=== PATIENT | male | born 1955 | race Caucasian/White ===

== ENCOUNTER 2020-07-22 02:11 | Inpatient (IN) | payer MEDICARE, SELFPAY ==
[2020-07-22] VITALS (11 sets, daily range): BP systolic 116–149; BP diastolic 66–87; PULSE 64–100; RESP 16–18; TEMP 36.8–37.1; O2SAT 94–99; BMI 29.1
--- NOTE | 2020-07-22 | US_ITS ---
EXAMINATION: US ABDOMEN LIMITED CLINICAL INFORMATION: Pancreatitis.. COMPARISON: MRI abdomen 09/16/2019 TECHNIQUE: Real-time imaging of the right upper quadrant abdominal viscera. FINDINGS: PANCREAS: The pancreas is homogeneous in echotexture with small amount of anterior peripancreatic fluid collection. The pancreatic duct is mildly dilated measuring 3 mm. LIVER: The liver is normal in size. The liver contour is normal. Parenchymal echogenicity is increased. No focal hepatic lesion. There is no intrahepatic biliary duct dilatation seen. GALLBLADDER: Normal. The gallbladder is physiologically distended without evidence of stones, sludge, polyps, wall thickening or pericholecystic fluid. COMMON BILE DUCT: Normal in caliber measuring 0.4 cm in diameter. RIGHT KIDNEY: Normal. No hydronephrosis. No renal calculi or focal parenchymal lesions. The kidney measures 11.0 cm in maximum dimension. FREE FLUID: None. US/US abdomen limited IMPRESSION: Hepatic steatosis without any focal lesion. Anterior peripancreatic fluid collection but the pancreas otherwise is unremarkable. The peripancreatic fluid collection is likely from previous pancreatitis. Similar fluid was noted on the MRI abdomen exam 09/16/2019. Right kidney, gallbladder and CBD is unremarkable.
--- NOTE | 2020-07-22 02:36 | ED_ITS ---
HPI - Abdominal Pain General Chief Complaint: Abdominal Pain Stated Complaint: Abd pain Time Seen by Provider: 07/22/20 02:36 Source: patient Mode of arrival: ambulatory Limitations: no limitations History of Present Illness HPI narrative: 65 yo male 2 years ago had idiophatic pancreatitis - here with similar presentation, 4 hour of abdominal pain and nausesa MD elicited complaint: abdominal pain Pertinent past history: other (pancreatitis) Onset (ago): hour(s) (4) Pain Consistency: constant Location: epigastric Severity: similar to previous episodes Quality: stabbing Radiation: none Migration to: no migration Exacerbating factors: movement Relieving factors: nothing Context: history of similar episodes Associated symptoms: nausea Related Data Home Medications Medication Instructions Recorded Confirmed No Known Home Meds 07/22/20 07/22/20 Allergies Allergy/AdvReac Type Severity Reaction Status Date / Time No Known Allergies Allergy Verified 07/22/20 02:48 [No Known Allergies*] Review of Systems Review of Systems Constitutional : No Weight loss, No Fever, No Chills ENT/Mouth : No sore throat, No Rhinorrhea Eyes: No Swelling, No Redness Cardiovascular : No Chest Pain, No SOB, NoEdema Respiratory : No Cough, No Sputum, No Wheezing Gastrointestinal : Positive Nausea, Positive Vomiting, no Diarrhea, positive abdominal Pain, No Hematochezia, No Melena Genitourinary : No Dysuria, No Urinary Frequency, No Hematuria, No Urgency Musculoskeletal : No joint pain, No Myalgias, No Joint Swelling Skin : No Skin Lesions, No rash Neuro : No Weakness, No Numbness, No Dizziness, No Headache Psych : No Anxiety/Panic, No Depression Heme/Lymph: No Bruising, No Lymphadenopathy Endocrine : No Polyuria, No Polydipsia All other systems reviewed and are negative. Physical Exam Vital Signs: Vital Signs: Last Vital Signs Temp 98.3 F 07/22/20 04:00 Pulse 85 07/22/20 04:47 Resp 16 07/22/20 04:00 BP 130/70 07/22/20 04:47 Pulse Ox 99 07/22/20 04:00 Body Mass Index 29.1 Appearance: Alert. Oriented X3. No acute distress. Eyes: Pupils equal, round and reactive to light. ENT: Pharynx normal. Neck: Normal inspection. Neck supple. CVS: Normal heart rate and rhythm. Pulses normal. Respiratory: No respiratory distress. Breath sounds normal. Abdomen: Soft and moderate epigastric ttp no rebound or guarding Skin: Skin warm and dry. Normal skin color. Normal skin turgor. Extremities: No lower extremity edema. No calf ttp Neuro: Oriented X 3. No motor deficit. No sensory deficit. Course Course Course Narrative: chronic elevation in WBC count leukocytosis today due to chronic issue and not infection or severe sepsis plan to admit at this time, VS stable MDM - Abdominal Pain MDM Narrative Medical decision making narrative: 65 yo male here with abdominal pain and nausea - feels similar to his pancreatitis - workup negative for cause at that time, will need labs, IVF, CT scan, IV dilaudid for pain, dispo per results and findings. Lab Data Result diagrams: 07/22/20 03:07 07/22/20 03:06 Labs: Lab Results 07/22/20 07/22/20 07/22/20 Range/Units 03:06 03:06 03:06 WBC (4.8-10.8) X10*3/uL RBC (4.60-5.80) X10*6/uL Hgb (14.0-18.0) g/dl Hct (42-52) % MCV (80-98) fL MCH (27.0-33.0) pg MCHC (31.0-36.0) g/dl RDW (11.0-16.0) % Plt Count (160-400) X10*3/uL MPV (9.4-12.4) fL Immature Gran % (Auto) (0.0-0.4) % Neut % (Auto) (45-73) % Lymph % (Auto) (20-40) % [place] % (Auto) (2-11) % Eos % (Auto) (0-4) % Baso % (Auto) (0-2) % Lymph # (Auto) (1.2-4.9) X10*3/uL [place] # (Auto) (0.1-1.2) X10*3/uL Eos # (Auto) (0.0-0.4) X10*3/uL Baso # (Auto) (0.0-0.2) X10*3/uL Abs Immat Gran (auto) (0.00-0.03) X10*3/uL Absolute Neuts (auto) (2.0-8.3) X10*3/uL Absolute Nucleated RBC (0.0-0.012) X10*3/uL Nucleated RBC % (auto) (0.0-0.2) /100WBC PT 11.9 (10.8-13.0) SEC INR 1.0 (0.9-1.1) APTT 30.0 (24.1-38.0) SEC Sodium 139 (135-145) mmol/L Potassium 4.9 (3.3-5.1) mmol/l Chloride 100 (96-108) mmol/L Carbon Dioxide 31 H (22-29) mmol/L Anion Gap 13 (12-20) BUN 19 H (9-16) mg/dL Creatinine 1.04 (0.5-1.4) mg/dL Estim Creat Clear Calc 68.7 Estimated GFR > 60 Random Glucose 177 H (60-115) mg/dL Calcium 9.3 (8.4-10.2) mg/dL Magnesium 2.1 (1.6-2.6) mg/dL Total Bilirubin 0.3 (0.0-1.0) mg/dL Direct Bilirubin < 0.2 (0.0-0.5) mg/dL AST 24 (5-37) U/L ALT 32 (0-40) U/L Alkaline Phosphatase 78 (39-117) U/L Lactate Dehydrogenase 177 (118-273) U/L Troponin I High Sens 4.5 (<3.5-35.0) ng/L Total Protein 7.2 (6.5-8.0) g/dL Albumin 4.3 (3.5-5.0) g/dL Lipase (8-78) U/L COVID-19 (ALPHONSE) (Negative) COVID-19 Clin Com 07/22/20 07/22/20 07/22/20 Range/Units 03:06 03:07 03:07 WBC 19.5 H (4.8-10.8) X10*3/uL RBC 5.38 (4.60-5.80) X10*6/uL Hgb 15.5 (14.0-18.0) g/dl Hct 46.7 (42-52) % MCV 86.8 (80-98) fL MCH 28.8 (27.0-33.0) pg MCHC 33.2 (31.0-36.0) g/dl RDW 13.2 (11.0-16.0) % Plt Count 259 (160-400) X10*3/uL MPV 10.1 (9.4-12.4) fL Immature Gran % (Auto) 0.3 (0.0-0.4) % Neut % (Auto) 88.4 H (45-73) % Lymph % (Auto) 7.8 L (20-40) % [place] % (Auto) 2.9 (2-11) % Eos % (Auto) 0.3 (0-4) % Baso % (Auto) 0.3 (0-2) % Lymph # (Auto) 1.5 (1.2-4.9) X10*3/uL [place] # (Auto) 0.6 (0.1-1.2) X10*3/uL Eos # (Auto) 0.1 (0.0-0.4) X10*3/uL Baso # (Auto) 0.1 (0.0-0.2) X10*3/uL Abs Immat Gran (auto) 0.06 H (0.00-0.03) X10*3/uL Absolute Neuts (auto) 17.2 H (2.0-8.3) X10*3/uL Absolute Nucleated RBC 0.000 (0.0-0.012) X10*3/uL Nucleated RBC % (auto) 0.0 (0.0-0.2) /100WBC PT (10.8-13.0) SEC INR (0.9-1.1) APTT (24.1-38.0) SEC Sodium (135-145) mmol/L Potassium (3.3-5.1) mmol/l Chloride (96-108) mmol/L Carbon Dioxide (22-29) mmol/L Anion Gap (12-20) BUN (9-16) mg/dL Creatinine (0.5-1.4) mg/dL Estim Creat Clear Calc Estimated GFR Random Glucose (60-115) mg/dL Calcium (8.4-10.2) mg/dL Magnesium (1.6-2.6) mg/dL Total Bilirubin (0.0-1.0) mg/dL Direct Bilirubin (0.0-0.5) mg/dL AST (5-37) U/L ALT (0-40) U/L Alkaline Phosphatase (39-117) U/L Lactate Dehydrogenase (118-273) U/L Troponin I High Sens (<3.5-35.0) ng/L Total Protein (6.5-8.0) g/dL Albumin (3.5-5.0) g/dL Lipase 8832 H (8-78) U/L COVID-19 (ALPHONSE) Negative (Negative) COVID-19 Clin Com See Note ECG Data Attestation: I personally reviewed and interpreted this ECG as follows: ECG interpretation date: 07/22/20 ECG interpretation time: 03:45 Interpretation: Rate: 75 Rhythm: NSR [place]: normal Normal P waves. Normal MIKY. Normal QRS complex. Poor R wave progression ST T wave : inverted 1, aVL, V3 - V6 , no GEMMA qTC: normal prior studies: changed from 2019 The study has been interpreted contemporaneously by me. . Discharge Plan Discharge Clinical Impression: Leukocytosis Qualifiers: Leukocytosis type: unspecified Qualified Code(s): D72.829 - Elevated white blood cell count, unspecified Acute pancreatitis Qualifiers: Pancreatitis type: idiopathic Acute pancreatitis complication: unspecified Qu alified Code(s): K85.00 - Idiopathic acute pancreatitis without necrosis or infection Patient Disposition: Admitted As Inpatient [facility] Past Medical History Attestation statement: The following information was validated with the patient. Medical History Pancreatitis Social History Social History (Updated 07/22/20 @ 03:03 by Nazia Samuels DO) Alcohol intake: never Smoking Status: Never smoker Use of substances other than those prescribed or required for medical reasons: No Advance Directives: No Advance Directives Information Provided: No
--- NOTE | 2020-07-22 02:39 | CT_ITS ---
EXAMINATION: CT ABDOMEN AND PELVIS WITH CONTRAST CLINICAL INFORMATION: Epigastric pain. COMPARISON: MRI dated 09/16/[address] dated 09/17/2018 TECHNIQUE: Multidetector volumetric images were obtained from the superior aspect of the liver through the pubic symphysis following administration 85 mL of Omnipaque 350 intravenous contrast. Sagittal and coronal reformatted images were obtained on the technologist's workstation. Oral contrast: No This CT examination was performed using dose optimization techniques as appropriate, variously including the following: *Automated exposure control *Adjustment of mA and/or kV according to patient size (this includes techniques or standardized protocols for targeted exams where dose is matched to indication/reason for exam; i.e. extremities or head) *Use of iterative reconstruction technique DLP: 814 mGy-Cm FINDINGS: LUNG BASES: Dependent atelectasis is present in the lower lobes. Left atrium is borderline enlarged. LIVER, GALLBLADDER, AND BILIARY TREE: Relative hypoattenuation of the hepatic parenchyma is most consistent with steatosis. There is slight parenchymal heterogeneity as well. No appreciable nodularity. No focal hepatic lesions are identified. Fatty sparing is noted around the gallbladder fossa. No biliary ductal dilatation. The gallbladder is unremarkable with no evidence of radiopaque gallstones, gallbladder wall thickening, or obvious pericholecystic inflammatory changes. PANCREAS: The pancreas appears mildly swollen with significant surrounding peripancreatic fat stranding, most pronounced in the pancreatic head and body. Fluid is present in the retroperitoneal fascial planes around the pancreatic head and body without a significant organized collection. This fluid propagates distally in the right anterior pararenal space. A small amount of fluid also extends into the left midabdomen in the left anterior pararenal space. The the pancreas appears normal in size without ductal dilatation or calcification. No findings of necrosis are identified. SPLEEN: Unremarkable. ADRENAL GLANDS: Unremarkable. KIDNEYS AND URETERS: Small nonobstructing calculi are present at the upper and lower pole calyces of the right kidney, measuring up to 3 mm in diameter. A small tubular calculus is also present in upper pole calyx of the left kidney. There is a 1.4 cm cyst in the upper pole of the left kidney with a density of 10 Hounsfield units. Additional cystic foci are present within the right kidney which are too small to characterize. BLADDER: Fall within normal wall thickness. No surrounding fat stranding or calculi. The enlarged prostate gland indents the base of the bladder. GASTROINTESTINAL TRACT: The stomach is mildly distended with fluid and food materials. The inflammation and fluid from the pancreas extend anteriorly to involve the deep wall of the gastric body, pylorus, and proximal duodenum. Mild wall thickening in the proximal duodenum suggests secondary inflammation. No evidence of bowel obstruction. Appendix is normal. No intraperitoneal free fluid or free air. ABDOMINAL WALL: Small fat-containing umbilical hernia. No bowel involvement. Small fat-containing right inguinal hernia. LYMPH NODES: Normal. VASCULAR: Minimal calcific atherosclerosis abdominal aorta. The portal venous system is patent. The splenic vein is patent. PELVIC VISCERA: Prostate gland is enlarged, measuring 5.2 cm transversely with a heterogeneous central gland and significant dystrophic calcifications. OSSEOUS STRUCTURES: Marked degenerative spondylosis is present in the lower lumbar spine at L5-S1. More mild degenerative disc disease is present in the lower thoracic spine. Slight right convex lumbar scoliosis. No acute fractures. Mild to moderate osteoarthritis in the hips. CT/CT abdomen pelvis w con IMPRESSION: 1. Acute interstitial pancreatitis with significant intraperitoneal fluid around the pancreatic head and body. No organized peripancreatic collections. 2. Hepatic steatosis. 3. Nonobstructing nephrolithiasis. 4. Prostatomegaly.
--- NOTE | 2020-07-22 02:40 | ECG_ITS ---
Test Reason : ABD PAIN Blood Pressure : / mmHG Vent. Rate : 075 BPM Atrial Rate : 075 BPM P-R Int : 168 ms QRS Dur : 092 ms QT Int : 384 ms P-R-T Axes : 069 069 159 degrees QTc Int : 428 ms Normal sinus rhythm Septal infarct , age undetermined T wave abnormality, consider inferolateral ischemia Abnormal ECG When compared with ECG of 14-JUL-2018 18:39, Inverted T waves have replaced nonspecific T wave abnormality in Anterolateral leads Referred By: Nazia Samuels Electronically Signed By:BENEDICT SMITH MD
[2020-07-22 03:12] LABS: MANUAL DIFF FLAG NO
[2020-07-22] MEDS: ondansetron HCL 4 MG/2 ML VIAL IVPUSH (03:12)
[2020-07-22] MEDS: 0.9 % Sodium Chloride 1,000 ML 999 ML IVCONT (03:12)
[2020-07-22] MEDS: HYDROmorphone HCl 1 MG/ML SYRINGE IVPUSH ×3 (03:12→16:24)
[2020-07-22 03:13] LABS: Basophils Absolute Auto 0.1 X10*3/uL (0.0-0.2); Basophils Percent Auto 0.3 % (0-2); Eosinophils Absolute Auto 0.1 X10*3/uL (0.0-0.4); Eosinophils Percent Auto 0.3 % (0-4); Hematocrit 46.7 % (42-52); Hemoglobin 15.5 g/dl (14.0-18.0); Imm Gran Abs Auto 0.06 X10*3/uL (0.00-0.03); Imm Gran Pct Auto 0.3 % (0.0-0.4); Lymphocytes Absolute Auto 1.5 X10*3/uL (1.2-4.9); Lymphocytes Percent Auto 7.8 % (20-40); Mean Corpuscular HGB Conc 33.2 g/dl (31.0-36.0); Mean Corpuscular Hemoglobin 28.8 pg (27.0-33.0); Mean Corpuscular Volume 86.8 fL (80-98); Mean Platelet Volume 10.1 fL (9.4-12.4); Monocytes Absolute Auto 0.6 X10*3/uL (0.1-1.2); Monocytes Percent Auto 2.9 % (2-11); Neutrophils Absolute Auto 17.2 X10*3/uL (2.0-8.3); Neutrophils Percent Auto 88.4 % (45-73); Platelet Count 259 X10*3/uL (160-400); Red Blood Count 5.38 X10*6/uL (4.60-5.80); Red Cell Distribution Width 13.2 % (11.0-16.0); White Blood Count 19.5 X10*3/uL (4.8-10.8)
[2020-07-22 03:19] LABS: Prothrombin Time 11.9 SEC (10.8-13.0)
[2020-07-22 03:26] LABS: COVID-19 Test Negative (Negative); IDNOW Serial# 9DD0AD1C
[2020-07-22 03:37] LABS: Alanine Aminotransferase 32 U/L (0-40); Albumin Level 4.3 g/dL (3.5-5.0); Alkaline Phosphatase 78 U/L (39-117); Anion Gap 13 (12-20); Aspartate Amino Transferase 24 U/L (5-37); Bilirubin Direct < 0.2 mg/dL (0.0-0.5); Bilirubin Total 0.3 mg/dL (0.0-1.0); Blood Urea Nitrogen 19 mg/dL (9-16); Calcium 9.3 mg/dL (8.4-10.2); Carbon Dioxide 31 mmol/L (22-29); Chloride 100 mmol/L (96-108); Creatinine Clr Calc Pharmacy 68.7; Estimated Glomerular Filt Rate > 60; Glucose Random 177 mg/dL (60-115); Lactate Dehydrogenase 177 U/L (118-273); Magnesium 2.1 mg/dL (1.6-2.6); Potassium 4.9 mmol/l (3.3-5.1); Sodium 139 mmol/L (135-145); Total Protein 7.2 g/dL (6.5-8.0)
[2020-07-22 03:41] LABS: Troponin-I High Sensitivity 4.5 ng/L (<3.5-35.0)
[2020-07-22 03:58] LABS: Lipase 8832 U/L (8-78)
[2020-07-22] MEDS: iohexoL 350 MG/ML 100 ML INFUS..BTL 85 ML IV (04:25)
--- NOTE | 2020-07-22 04:54 | PC.NURSE ---
PATIENT REPORTING NO PAIN AFTER RETURNING TO CT SCAN. AWAITING RESULTS FLUIDS CONTINUING TO RUN AT THIS TIME.
[2020-07-22] MEDS: Lactated Ringers 1,000 ML 100 ML IVCONT (05:47)
[2020-07-22 05:49] LABS: Triglycerides 135 mg/dL
--- NOTE | 2020-07-22 06:13 | PM.IMHP ---
History of Present Illness Date of Service: 07/22/20 Chief Complaint: abdominal pain This is a generally healthy 65-year-old male with past medical history of idiopathic pancreatitis 2 years ago who presents to the hospital with severe abdominal pain. Patient describes the pain as epigastric, nonradiating, 9/10, sudden onset, no alleviating or exacerbating factors, that occurred in the evening while at rest. Patient reports nausea associated with his and 1 episode of vomiting. Patient denies drinking alcohol, denies taking any medications for any medical problems at this time and reports a similar episode 2 years ago that was idiopathic in nature. He denies any chest pain, no headache or change in vision, no shortness of breath or cough, no diarrhea, no urinary symptoms no lower extremity edema, no weakness numbness or tingling. On arrival to the ED hemodynamically stable with no significant abnormal vitals except for a blood pressure 147/78 which has now resolved Labs are significant for WBC count of 19.5, patient afebrile, BUN of 19, creatinine of 1.04, lipase of 8832. CT abdomen shows with significant intraperitoneal fluid around the pancreatic head and body. No organized peripancreatic collections,Hepatic steatosis, non obstructing nephrolithiasis and prostatomegaly Past medical history: Patient reports a history of hypertension that has now resolved and he is not on any medications, episode of acute pancreatitis 2 years ago that was idiopathic Surgical history: Denies Family history: MD in father, mother has Parkinson's Social history: Comes from home, lives with his family, denies any tobacco alcohol or illicit drugs Review of Systems Review of Systems: Yes all other systems are reviewed and are negative [facility] Medical History Pancreatitis Social History (Updated 07/22/20 @ 03:03 by Nazia Samuels DO) Alcohol intake: never Smoking Status: Never smoker Use of substances other than those prescribed or required for medical reasons: No Advance Directives: No Advance Directives Information Provided: No Meds Allergies Allergy/AdvReac Type Severity Reaction Status Date / Time No Known Allergies Allergy Verified 07/22/20 02:48 [No Known Allergies*] Home Medications Medication Instructions Recorded Confirmed Type No Known Home Meds 07/22/20 07/22/20 History Physical Exam Vital Signs and Narrative: Vital Signs: Last Vital Signs Temp 98.3 F 07/22/20 04:00 Pulse 85 07/22/20 04:47 Resp 16 07/22/20 04:00 BP 130/70 07/22/20 04:47 Pulse Ox 99 07/22/20 04:00 Body Mass Index 29.1 Const: General: cooperative and no acute distress Orientation/consciousness: patient oriented x3 Eyes: General: appearance normal, both eyes and all related structures Resp: Effort & Inspection: normal respiratory effort and able to speak in complete sentences Cardio: Rate: regular rate Rhythm: regular rhythm GI: Other: Epigastric tenderness, Palpation (GI): Soft to palpation Auscultation: normal bowel sounds Skin: General skin exam: no rashes or lesions noted Neuro: General: patient oriented x3 Cognition (Neuro): normal cognition Extrem: General: Yes normal to inspection and Yes no pedal edema Results Labs CBC and Chem 7: 07/22/20 03:07 07/22/20 03:06 Labs: Laboratory Results - last 24 hr 07/22/20 07/22/20 07/22/20 03:06 03:06 03:06 MCV MCH MCHC RDW Plt Count MPV Immature Gran % (Auto) Neut % (Auto) Lymph % (Auto) [place] % (Auto) Eos % (Auto) Baso % (Auto) Lymph # (Auto) [place] # (Auto) Eos # (Auto) Baso # (Auto) Abs Immat Gran (auto) Absolute Neuts (auto) Absolute Nucleated RBC Nucleated RBC % (auto) PT 11.9 INR 1.0 APTT 30.0 Anion Gap 13 Estim Creat Clear Calc 68.7 Estimated GFR > 60 Random Glucose 177 H Calcium 9.3 Magnesium 2.1 Total Bilirubin 0.3 Direct Bilirubin < 0.2 AST 24 ALT 32 Alkaline Phosphatase 78 Lactate Dehydrogenase 177 Troponin I High Sens 4.5 Total Protein 7.2 Albumin 4.3 Triglycerides Lipase COVID-19 (ALPHONSE) COVID-19 Clin Com 07/22/20 07/22/20 07/22/20 03:06 03:07 03:07 MCV 86.8 MCH 28.8 MCHC 33.2 RDW 13.2 Plt Count 259 MPV 10.1 Immature Gran % (Auto) 0.3 Neut % (Auto) 88.4 H Lymph % (Auto) 7.8 L [place] % (Auto) 2.9 Eos % (Auto) 0.3 Baso % (Auto) 0.3 Lymph # (Auto) 1.5 [place] # (Auto) 0.6 Eos # (Auto) 0.1 Baso # (Auto) 0.1 Abs Immat Gran (auto) 0.06 H Absolute Neuts (auto) 17.2 H Absolute Nucleated RBC 0.000 Nucleated RBC % (auto) 0.0 PT INR APTT Anion Gap Estim Creat Clear Calc Estimated GFR Random Glucose Calcium Magnesium Total Bilirubin Direct Bilirubin AST ALT Alkaline Phosphatase Lactate Dehydrogenase Troponin I High Sens Total Protein Albumin Triglycerides 135 Lipase 8832 H COVID-19 (ALPHONSE) Negative COVID-19 Clin Com See Note Imaging Radiologist's Impressions: Impressions Abdomen/Pelvis CT 07/22/20 02:39 IMPRESSION: 1. Acute interstitial pancreatitis with significant intraperitoneal fluid around the pancreatic head and body. No organized peripancreatic collections. 2. Hepatic steatosis. 3. Nonobstructing nephrolithiasis. 4. Prostatomegaly. Assessment and Plan (1) Acute pancreatitis: Qualifiers: Acute pancreatitis complication: unspecified Pancreatitis type: idiopathic Qualified Code(s): K85.00 - Idiopathic acute pancreatitis without necrosis or infection Status: Acute (2) Leukocytosis: Qualifiers: Leukocytosis type: unspecified Qualified Code(s): D72.829 - Elevated white blood cell count, unspecified Status: Acute This is a 65-year-old healthy male who presents to the hospital with complaint of abdominal pain found to have acute pancreatitis # acute pancreatitis - had a similar episode 2 years ago that was found to be hepatic, patient denies having any history of alcohol use, no evidence of gallstone on CT abdomen, pending triglyceride levels that were normal in the past - lipase > a 1000, CT abdomen showing acute pancreatitis with significant intraperitoneal fluid Plan: - IV fluids, will keep him NPO at this time, as well as pain management with morphine - pending triglyceride levels - will obtain a right upper quadrant abdominal ultrasound to completely rule out gallstone as the etiology - may need follow-up CT scan given the significant intraperitoneal fluid collection. Although does not have any organized peripancreatic collection this time # leukocytosis - no evidence of peripancreatic collection, has no fever, - will follow CBC - may need follow-up CT to make sure no cyst or necrosis occurs DVT prophylaxis: Lovenox
[2020-07-22] MEDS: 0.9 % Sodium Chloride Flush 3 ML SYRINGE IVFLUSH (09:10)
--- NOTE | 2020-07-22 15:12 | PM.EVENT ---
Event Note Date of Service: 07/22/20 Event Note: Imp: Recurrent acute pancreatitis of unclear etiology. Work up in 2019 was completely negative including neg. EtOH history, U/S, MRI, Triglyceride levels, and IgG subtypes re: autoimmune pancreatitis. F/U MRI in 09/2019 looked improved. He presently appears well. He still has abdominal tenderness, but has good BS and there is no evidence of necrosis on the CT. His w/u presently is negative again with no hx of EtOH, normal U/S, no new meds, and normal TG's'. Rec: NPO for now, supportive care, F/U labs in AM. Slowly advance diet over weekend if symptoms and labs improve. I advised him that once he is discharged and clinically improved the next step would be an EUS of the pancreas and possible ERCP. Given normal LFT's and neg U/S, I think a biliary source would be unlikely and therefore would hold off on an empiric CCY. I don't think he needs antibiotics at this time. Will follow. D/W patient in detail and he is comfortable with this plan. Thanks.
--- NOTE | 2020-07-22 15:27 | MHC.CM.PN ---
Addendum entered by Lita Ochoa RN 07/22/20 15:32: PT WILL ATTEMPT TO MEET WITH PT BEFORE END OF DAY OR TOMORROW MORNING. Original Note: CM ATTEMPTED TO MEET WITH PT WHO GAVE CM HIS O BLUE MEDICARE CARD, CM GAVE CARD NUMBER TO REGISTRATION AND COPY PLACED IN CHART. CM UNABLE TO COMPLETE ASSESSMENT AT THIS TIME DUE TO PT ON PHONE CALL.
--- NOTE | 2020-07-22 16:01 | MHC.CM.PN ---
IMM 07/12/20, PT ADMITTED WITH ACUTE PANCREATITIS, CM MET WITH PT WHO IS ALERT AND ORIENTED, PT REPORTS HE IS INDEPENDENT WITH ALL CARE AT HOME, PT DENIES USE OF ANY DME AND HOME SERVICES, PT VERIFIES PCP BRITTNEY SANTOS AND [facility] IN [place], PT VERIFIED WITH HIS HE HAS NO HEALTH CARE PROXY BUT WOULD LIKE TO COMPLETE ONE PRIOR TO DISCHARGE, PT REPORTS HE WOULD LIKE HIS TEA TO BE HIS HCP AND HIS ELDEST DAUGHTER PINA SANTORO TO BE HIS ALTERNATE, CM TO COMPLETE WITH PT IN AM OF 07/23/20. DISCHARGE PLAN HOME SELF-CARE, TO TRANSPORT : [employer]: [phone]
[2020-07-22] MEDS: Lactated Ringers 1,000 ML 150 ML IVCONT (22:10)
--- NOTE | 2020-07-22 22:50 | CONS_ITS ---
DATE OF SERVICE: REFERRING PHYSICIAN: Enid Keenan MD REASON FOR CONSULTATION: Recurrent acute pancreatitis. HISTORY OF PRESENT ILLNESS: This has been obtained from the patient and the medical record. The patient is a 65-year-old male, well known to me from previous hospitalization and office visits. I met him in July 2018, when he was admitted with pancreatitis of unclear etiology. The workup was completely negative including no alcohol history, normal triglyceride levels, normal ultrasound in regard to the gallbladder and biliary tree, negative MRI in regard to any pancreatic ductal abnormality, negative IgG levels in regard to any autoimmune component of pancreatitis, and no history of any suspicious medication that would cause pancreatitis. He was in the hospital for several days at that time and recovered without any sequelae. He had a followup MRI in September of 2019, which showed a small fluid collection which was improved, but no other pancreatic abnormalities. There was no MRCP evidence of ductal abnormalities. The patient was well up until last night. He developed the acute onset of upper abdominal pain with associated vomiting. Prior to last night, he was feeling well without any GI symptoms. Again, there is no history of any significant alcohol intake. He has not been on any new medication. He denies any preceding history of jaundice. He denies any fevers. He denies any signs of GI bleeding. His bowel movements have been regular without any melena nor hematochezia. He denies any known family history of pancreatic disease. Since hospitalization here, he has been feeling somewhat better. He still has some upper abdominal pain and tenderness. He has had no further vomiting. MEDICATIONS: At home, none. PAST MEDICAL HISTORY: Idiopathic pancreatitis in July 2018 with a completely negative workup. Previous history of hypertension and hyperlipidemia, but currently on no medication. Colonoscopy in February 2019 with removal of a small tubular adenoma. Negative stress test in 2019. He denies history of PA, diabetes, stroke nor lung disease. PAST SURGICAL HISTORY: Negative. FAMILY HISTORY: Noncontributory. SOCIAL HISTORY: He is presently retired but works part-time as a [employer] for the town [employer].. He is . He does not smoke and does not use any significant amounts of alcohol whatsoever. REVIEW OF SYSTEMS: CONSTITUTIONAL: Prior to last time, he was feeling well with good energy and good appetite. SKIN: No rash. No pruritus. CARDIAC: No chest pain. PULMONARY: No cough. No hemoptysis. GI: As above. URINARY: No dysuria or hematuria. NEUROLOGIC: No headache or seizures. PHYSICAL EXAMINATION: GENERAL: The patient is a pleasant, alert, comfortable appearing male, in no distress. He is lying comfortably in bed. SKIN: Warm and dry. HEENT: Anicteric sclerae. Moist mucous membranes. NECK: Supple. CHEST: Clear. CARDIAC: Normal S1 and S2. ABDOMEN: Soft with normal bowel sounds and nondistended. He does have upper abdominal tenderness to palpation, but without palpable mass. There is no rebound. There is some mild guarding. EXTREMITIES: Without edema. LABORATORY DATA: White blood cell count 19.5, hemoglobin 15.5, platelets 259,000. PT 11.9 with INR 1.0. Normal electrolytes. BUN 19, creatinine 1.0, random glucose 177, calcium 9.3, total bilirubin 0.3, direct bilirubin less than 0.2. AST 24, ALT 32, alkaline phosphatase 78, lipase 8832, triglyceride levels 135, albumin 4.3. His COVID test was negative. His CT of the abdomen revealed some probable fatty liver, but without any sign of biliary obstruction nor gallbladder disease. Pancreas appeared to be inflamed with stranding of the fat with some fluid in the retroperitoneal area. There was no sign of any necrosis. There was no sign of any pancreatic ductal dilatation nor calcification. He had some nonobstructing kidney stones. His abdominal ultrasound again revealed no sign of any biliary obstruction and a normal appearing gallbladder without any sign of stones nor sludge. The common bile duct was only 4 mm. IMPRESSION: Given the patient's clinical history, both in 2019 and on today's presentation, this seems quite consistent with another episode of idiopathic acute pancreatitis. At this point, I would recommend supportive care. I would keep him n.p.o. and follow up laboratories in the morning. I would slowly advance diet over the weekend if his symptoms and laboratories improve, as well as the abdominal tenderness. Assuming things improve and he is discharged in the near future, we could then schedule him for an eventual endoscopic ultrasound and possible ERCP for further evaluation of these episodes of acute pancreatitis. Given the normal LFTs and negative ultrasound, I think a biliary source of the pancreatitis would be very unlikely and therefore would hold off on recommending an empiric cholecystectomy. I do not think he needs antibiotics at this time despite the elevated white blood cell count given his good clinical appearance. If he develops any worsening abdominal pains, fevers, or other signs of clinical deterioration, we may want to proceed with a followup CAT scan. However, if things remain stable and improve, I would hold off on that for the time being. This has all been discussed with the patient in detail. He is comfortable with this plan. MD RACHEL Forte/TALYA / [phone] MTDD
[2020-07-23] VITALS (7 sets, daily range): BP systolic 136–154; BP diastolic 72–88; PULSE 77–93; RESP 15–18; TEMP 36.5–37.7; O2SAT 92–96
[2020-07-23] MEDS: HYDROmorphone HCl 1 MG/ML SYRINGE IVPUSH (00:35)
[2020-07-23 05:53] LABS: MANUAL DIFF FLAG NO
[2020-07-23 05:58] LABS: Basophils Percent Auto 0.2 % (0-2); Eosinophils Absolute Auto 0.2 X10*3/uL (0.0-0.4); Eosinophils Percent Auto 1.3 % (0-4); Hemoglobin 13.3 g/dl (14.0-18.0); Imm Gran Abs Auto 0.04 X10*3/uL (0.00-0.03); Imm Gran Pct Auto 0.3 % (0.0-0.4); Lymphocytes Absolute Auto 1.4 X10*3/uL (1.2-4.9); Lymphocytes Percent Auto 9.7 % (20-40); Mean Corpuscular HGB Conc 33.3 g/dl (31.0-36.0); Mean Corpuscular Hemoglobin 28.8 pg (27.0-33.0); Mean Corpuscular Volume 86.6 fL (80-98); Mean Platelet Volume 10.6 fL (9.4-12.4); Monocytes Absolute Auto 0.8 X10*3/uL (0.1-1.2); Neutrophils Absolute Auto 11.5 X10*3/uL (2.0-8.3); Neutrophils Percent Auto 82.5 % (45-73); Platelet Count 214 X10*3/uL (160-400); Red Blood Count 4.62 X10*6/uL (4.60-5.80); Red Cell Distribution Width 13.2 % (11.0-16.0)
[2020-07-23] MEDS: Lactated Ringers 1,000 ML 150 ML IVCONT ×3 (06:06→18:31)
[2020-07-23 06:45] LABS: Alanine Aminotransferase 19 U/L (0-40); Albumin Level 3.4 g/dL (3.5-5.0); Alkaline Phosphatase 69 U/L (39-117); Anion Gap 15 (12-20); Aspartate Amino Transferase 16 U/L (5-37); Bilirubin Direct 0.3 mg/dL (0.0-0.5); Bilirubin Total 0.6 mg/dL (0.0-1.0); Blood Urea Nitrogen 12 mg/dL (9-16); Calcium 8.1 mg/dL (8.4-10.2); Carbon Dioxide 22 mmol/L (22-29); Chloride 103 mmol/L (96-108); Creatinine Clr Calc Pharmacy 95.4; Estimated Glomerular Filt Rate > 60; Glucose Random 100 mg/dL (60-115); Sodium 136 mmol/L (135-145); Total Protein 5.6 g/dL (6.5-8.0)
[2020-07-23 07:00] LABS: Lipase 1553 U/L (8-78)
[2020-07-23] MEDS: Acetaminophen 325 MG TABLET 650 MG PO ×2 (09:51→17:23)
--- NOTE | 2020-07-23 10:19 | MHC.CM.PN ---
CM MET WITH PATIENT AND COMPLETED HEALTH CARE PROXY. PT HAS NAMED HIS TEA HCP AND DAUGHTER PINA HIS ALTERNATE, PT GIVEN ORIGINAL AND 4 COPIES, COPY UPLOADED TO [employer] AND PLACED IN CHART. HCP: TEA FLORES [phone] ALTERNATE: PINA SANTORO [phone]
--- NOTE | 2020-07-23 10:34 | MHC.CM.PN ---
PER ATTENDING PT IMPROVING ANTICIPATED D/C MONDAY 07/24 OR TUESDAY 07/25. PLAN FOR HOME SELF-CARE, TO TRANSPORT
--- NOTE | 2020-07-23 12:43 | HO.PM.IMPN ---
Subjective Subjective Date of Service: 07/23/20 Interval History: the patient was seen and evaluated this morning Laying in bed, feels comfortable the still complaining of epigastric pain Did not try to eat much, fairly clear liquids Denies any fever, chills or shortness of breath No reported other overnight events. Systemic review: No fever, chills or weakness No chest pain, palpitation No shortness of breath or coughing Epigastric pain with no nausea or vomiting No urinary symptoms No any rash or wounds Physical Exam Vital Signs: Vital Signs: Last Vital Signs Temp 98.3 F 07/23/20 11:29 Pulse 86 07/23/20 11:29 Resp 15 07/23/20 11:29 BP 143/72 H 07/23/20 11:29 Pulse Ox 92 07/23/20 11:29 Body Mass Index 29.1 Constitutional : Alert, oriented, not in distress Neck : Normal inspection, Supple Cardiovascular : RRR, S1 S2, no lower extremity edema Respiratory : Good bilateral air entry, no crackles, wheezes or rhonchi Gastrointestinal: soft, lax, Normal bowel sounds, epigastric tenderness Skin : Warm/Dry, No rash Neurological : Alert & oriented x3, No focal deficit Objective Data Current Medications Generic Name Dose Route Start Last Admin Trade Name Freq PRN Reason Stop Dose Admin Acetaminophen 650 mg 07/22/20 10:53 07/23/20 09:51 Acetaminophen 325 Mg Tablet PO 650 mg Q6H PRN Administration Pain, Mild (Pain Scale 1-3) Docusate Sodium 100 mg 07/22/20 10:53 Docusate Sodium 100 Mg Capsule PO DAILY PRN Constipation Enoxaparin Sodium 40 mg 07/22/20 05:45 07/23/20 05:22 Enoxaparin Sodium 40 Mg/0.4 Ml Syringe SUBCUT Not Given Q24H MARYBETH Hydromorphone HCl 1 mg 07/22/20 04:35 07/23/20 00:35 Hydromorphone Hcl 1 Mg/Ml Syringe IVPUSH 1 mg RQ4H PRN Administration Pain, Moderate (Pain Scale 4-6 Lactated Ringer's 1,000 mls @ 150 mls/hr 07/22/20 04:15 07/23/20 11:22 Lr IVCONT 150 mls/hr .Q6H40M MARYBETH Administration Morphine Sulfate 4 mg 07/22/20 05:37 Morphine Sulfate 4 Mg/Ml Cartridge IVPUSH Q4H PRN Pain, Severe (Pain Scale 7-10) Ondansetron HCl 4 mg 07/22/20 10:53 Ondansetron Hcl 4 Mg/2 Ml Vial IVPUSH Q8H PRN Nausea and Vomiting Pharmacy Consult 1 each 07/22/20 02:39 Consult Rx Perform Med Rec MISCELLANE ONCE PRN Consult order Sodium Chloride 3 ml 07/22/20 08:00 07/23/20 07:21 0.9 % Sodium Chloride Flush 3 Ml Syringe IVFLUSH Not Given QSHIFT MARYBETH Labs CBC & Chem 7: 07/23/20 05:17 07/23/20 05:17 Assessment and Plan (1) Acute pancreatitis: Status: Acute (2) Leukocytosis: Status: Acute Assessment and Plan: This is a 65-year-old healthy male who presents to the hospital with complaint of abdominal pain found to have acute pancreatitis acute pancreatitis No history of alcohol use, no evidence of gallstone on CT abdomen CT abdomen showing acute pancreatitis with significant intraperitoneal fluid Lipase dropped from 8000 to 1500 Continue with IV fluid Start clear liquids opioid as needed for pain management normal triglyceride levels RUQ abdominal ultrasound rule out gallstone GI input appreciated, OP follow up for ERCP\EUS leukocytosis improving Likely 2/2 pancreatitis DVT prophylaxis: Lovenox
--- NOTE | 2020-07-23 17:32 | PM.GIPN ---
Subjective Subjective Date of Service: 07/23/20 Interval History: Feeling much better, although still with some discomfort. Passing flatus. Tolerating a little food. Denies N/V. Physical Exam Vital Signs: Vital Signs: Last Vital Signs Temp 98.3 F 07/23/20 16:00 Pulse 86 07/23/20 16:00 Resp 18 07/23/20 16:00 BP 146/79 H 07/23/20 16:00 Pulse Ox 94 07/23/20 16:00 Body Mass Index 29.1 Const: General: cooperative, healthy appearing, comfortable, no acute distress and well developed Eyes: Sclerae: sclerae normal GI: Inspection: Yes normal to inspection Palpation (GI): Tenderness to palpation present (GI) (Slight upper abdominal tenderness, improved) Percussion: Yes normal to percussion Auscultation: normal bowel sounds Objective Data Labs CBC & Chem 7: 07/23/20 05:17 07/23/20 05:17 Labs: Laboratory Results - last 24 hr 07/23/20 07/23/20 05:17 05:17 WBC 14.0 H RBC 4.62 Hgb 13.3 L Hct 40.0 L MCV 86.6 MCH 28.8 MCHC 33.3 RDW 13.2 Plt Count 214 MPV 10.6 Immature Gran % (Auto) 0.3 Neut % (Auto) 82.5 H Lymph % (Auto) 9.7 L [place] % (Auto) 6.0 Eos % (Auto) 1.3 Baso % (Auto) 0.2 Lymph # (Auto) 1.4 [place] # (Auto) 0.8 Eos # (Auto) 0.2 Baso # (Auto) 0.0 Abs Immat Gran (auto) 0.04 H Absolute Neuts (auto) 11.5 H Absolute Nucleated RBC 0.000 Nucleated RBC % (auto) 0.0 Sodium 136 Potassium 4.0 Chloride 103 Carbon Dioxide 22 Anion Gap 15 BUN 12 Creatinine 0.75 Estim Creat Clear Calc 95.4 Estimated GFR > 60 Random Glucose 100 D Calcium 8.1 L D Total Bilirubin 0.6 Direct Bilirubin 0.3 AST 16 ALT 19 Alkaline Phosphatase 69 Total Protein 5.6 L D Albumin 3.4 L D Lipase 1553 H Progress Note: A&P Assessment and plan (1) Acute pancreatitis: Problem details: Pancreatitis clinically improved re: labs, exam, and symptoms. Continue observation and supportive care. Advance diet over w/e and follow up labs. If he continues to improve then can discharge over w/e and I will arrange for outpatient EUS and possible ERCP. D/W patient in detail and he is comfortable with this plan. Thanks. Status: Acute Fall Risk Details Current Medications: Current Medications Generic Name Dose Route Start Last Admin Trade Name Isaacq PRN Reason Stop Dose Admin Acetaminophen 650 mg 07/22/20 10:53 07/23/20 17:23 Acetaminophen 325 Mg Tablet PO 650 mg Q6H PRN Administration Pain, Mild (Pain Scale 1-3) Docusate Sodium 100 mg 07/22/20 10:53 Docusate Sodium 100 Mg Capsule PO DAILY PRN Constipation Enoxaparin Sodium 40 mg 07/22/20 05:45 07/23/20 05:22 Enoxaparin Sodium 40 Mg/0.4 Ml Syringe SUBCUT Not Given Q24H MARYBETH Hydromorphone HCl 1 mg 07/22/20 04:35 07/23/20 00:35 Hydromorphone Hcl 1 Mg/Ml Syringe IVPUSH 1 mg RQ4H PRN Administration Pain, Moderate (Pain Scale 4-6 Lactated Ringer's 1,000 mls @ 150 mls/hr 07/22/20 04:15 07/23/20 16:57 Lr IVCONT Not Given .Q6H40M MARYBETH Morphine Sulfate 4 mg 07/22/20 05:37 Morphine Sulfate 4 Mg/Ml Cartridge IVPUSH Q4H PRN Pain, Severe (Pain Scale 7-10) Ondansetron HCl 4 mg 07/22/20 10:53 Ondansetron Hcl 4 Mg/2 Ml Vial IVPUSH Q8H PRN Nausea and Vomiting Pharmacy Consult 1 each 07/22/20 02:39 Consult Rx Perform Med Rec MISCELLANE ONCE PRN Consult order Sodium Chloride 3 ml 07/22/20 08:00 07/23/20 16:57 0.9 % Sodium Chloride Flush 3 Ml Syringe IVFLUSH Not Given QSHIFT MARYBETH Time Spent With Patient Time: Total time spent is greater than 50% in coordination of care (as documented) at patient's floor/unit and/or counseling patient: Time with patient: 15 - 24 minutes
[2020-07-24] MEDS: Lactated Ringers 1,000 ML 150 ML IVCONT ×2 (00:47→06:48)
[2020-07-24 01:27] VITALS: BP 151/72; PULSE 99; RESP 16; TEMP 36.7; O2SAT 99
[2020-07-24] MEDS: Acetaminophen 325 MG TABLET 650 MG PO ×3 (01:32→23:11)
[2020-07-24 04:59] VITALS: BP 156/81; PULSE 77; RESP 16; TEMP 37.2; O2SAT 96
--- NOTE | 2020-07-24 06:35 | PC.NURSE ---
Patient refused subcut lovenox. Educated patient on importance of medication. Md made aware patient refused med.
[2020-07-24 06:58] LABS: MANUAL DIFF FLAG NO
[2020-07-24 07:10] LABS: Basophils Absolute Auto 0.1 X10*3/uL (0.0-0.2); Basophils Percent Auto 0.4 % (0-2); Eosinophils Absolute Auto 0.2 X10*3/uL (0.0-0.4); Eosinophils Percent Auto 1.6 % (0-4); Hemoglobin 13.4 g/dl (14.0-18.0); Imm Gran Abs Auto 0.05 X10*3/uL (0.00-0.03); Imm Gran Pct Auto 0.4 % (0.0-0.4); Lymphocytes Absolute Auto 1.9 X10*3/uL (1.2-4.9); Lymphocytes Percent Auto 15.1 % (20-40); Mean Corpuscular HGB Conc 33.5 g/dl (31.0-36.0); Mean Corpuscular Volume 86.6 fL (80-98); Mean Platelet Volume 10.8 fL (9.4-12.4); Monocytes Percent Auto 7.8 % (2-11); Neutrophils Absolute Auto 9.4 X10*3/uL (2.0-8.3); Neutrophils Percent Auto 74.7 % (45-73); Platelet Count 206 X10*3/uL (160-400); Red Blood Count 4.62 X10*6/uL (4.60-5.80); Red Cell Distribution Width 13.1 % (11.0-16.0); White Blood Count 12.6 X10*3/uL (4.8-10.8)
[2020-07-24 07:31] LABS: Anion Gap 13 (12-20); Blood Urea Nitrogen 8 mg/dL (9-16); Calcium 8.4 mg/dL (8.4-10.2); Carbon Dioxide 26 mmol/L (22-29); Chloride 104 mmol/L (96-108); Creatinine Clr Calc Pharmacy 91.7; Estimated Glomerular Filt Rate > 60; Glucose Fasting 94 mg/dL (60-99); Potassium 4.3 mmol/l (3.3-5.1); Sodium 139 mmol/L (135-145)
[2020-07-24 07:42] VITALS: BP 161/84; PULSE 80; RESP 18; TEMP 36.5; O2SAT 96
[2020-07-24] MEDS: 0.9 % Sodium Chloride Flush 3 ML SYRINGE IVFLUSH (07:56)
[2020-07-24 07:57] LABS: Lipase 133 U/L (8-78)
[2020-07-24 11:46] VITALS: BP 153/88; PULSE 82; RESP 15; TEMP 36.7; O2SAT 95
[2020-07-24] MEDS: Lactated Ringers 1,000 ML 100 ML IVCONT ×2 (14:01→23:07)
--- NOTE | 2020-07-24 15:20 | HO.PM.IMPN ---
Subjective Subjective Date of Service: 07/24/20 Interval History: the patient was seen and evaluated this morning Laying in bed, feels better as pain has significantly decreased the Diet advanced this morning Denies any fever, chills or shortness of breath No reported other overnight events. Systemic review: No fever, chills or weakness No chest pain, palpitation No shortness of breath or coughing Epigastric pain with no nausea or vomiting No urinary symptoms No any rash or wounds Physical Exam Vital Signs: Vital Signs: Last Vital Signs Temp 98.0 F 07/24/20 11:46 Pulse 82 07/24/20 11:46 Resp 15 07/24/20 11:46 BP 153/88 H 07/24/20 11:46 Pulse Ox 95 07/24/20 11:46 Body Mass Index 29.1 Constitutional : Alert, oriented, not in distress Neck : Normal inspection, Supple Cardiovascular : RRR, S1 S2, no lower extremity edema Respiratory : Good bilateral air entry, no crackles, wheezes or rhonchi Gastrointestinal: soft, lax, Normal bowel sounds, mild abdominal tenderness mainly in the epigastric area the Skin : Warm/Dry, No rash Neurological : Alert & oriented x3, No focal deficit Objective Data Current Medications Generic Name Dose Route Start Last Admin Trade Name Freq PRN Reason Stop Dose Admin Acetaminophen 650 mg 07/22/20 10:53 07/24/20 01:32 Acetaminophen 325 Mg Tablet PO 650 mg Q6H PRN Administration Pain, Mild (Pain Scale 1-3) Docusate Sodium 100 mg 07/22/20 10:53 Docusate Sodium 100 Mg Capsule PO DAILY PRN Constipation Enoxaparin Sodium 40 mg 07/22/20 05:45 07/24/20 06:32 Enoxaparin Sodium 40 Mg/0.4 Ml Syringe SUBCUT Not Given Q24H MARYBETH Hydromorphone HCl 1 mg 07/22/20 04:35 07/23/20 00:35 Hydromorphone Hcl 1 Mg/Ml Syringe IVPUSH 1 mg RQ4H PRN Administration Pain, Moderate (Pain Scale 4-6 Lactated Ringer's 1,000 mls @ 100 mls/hr 07/22/20 04:15 07/24/20 14:01 Lr IVCONT 100 mls/hr .Q10H MARYBETH Administration Morphine Sulfate 4 mg 07/22/20 05:37 Morphine Sulfate 4 Mg/Ml Cartridge IVPUSH Q4H PRN Pain, Severe (Pain Scale 7-10) Ondansetron HCl 4 mg 07/22/20 10:53 Ondansetron Hcl 4 Mg/2 Ml Vial IVPUSH Q8H PRN Nausea and Vomiting Pharmacy Consult 1 each 07/22/20 02:39 Consult Rx Perform Med Rec MISCELLANE ONCE PRN Consult order Sodium Chloride 3 ml 07/22/20 08:00 07/24/20 15:01 0.9 % Sodium Chloride Flush 3 Ml Syringe IVFLUSH Not Given QSHIFT MARYBETH Labs CBC & Chem 7: 07/24/20 06:25 07/24/20 06:25 Assessment and Plan (1) Acute pancreatitis: Status: Acute (2) Leukocytosis: Status: Acute Assessment and Plan: This is a 65-year-old healthy male who presents to the hospital with complaint of abdominal pain found to have acute pancreatitis acute pancreatitis No history of alcohol use, no evidence of gallstone on CT abdomen CT abdomen showing acute pancreatitis with significant intraperitoneal fluid normal triglyceride levels RUQ abdominal ultrasound rule out gallstone the morning Lipase dropped to 150 Continue with IV fluid, lower the rate Advance to regular diet opioid as needed for pain management GI input appreciated, OP follow up for ERCP\EUS leukocytosis improving Likely 2/2 pancreatitis DVT prophylaxis: Lovenox
[2020-07-24 15:29] VITALS: BP 155/76; PULSE 84; RESP 18; TEMP 37.1; O2SAT 96
--- NOTE | 2020-07-24 18:11 | PC.NURSE ---
pt tolerates advanced diet without nausea and vomiting. reported mild/ dull pain in lower abdomen, improved with tylenol.
[2020-07-24 19:56] VITALS: BP 147/73; PULSE 72; RESP 18; TEMP 36.8; O2SAT 97
[2020-07-25] VITALS: BP 163/83; PULSE 74; RESP 16; TEMP 37.2; O2SAT 97
[2020-07-25 07:41] VITALS: BP 161/91; PULSE 75; RESP 17; TEMP 37; O2SAT 96
[2020-07-25 07:45] LABS: Anion Gap 13 (12-20); Blood Urea Nitrogen 7 mg/dL (9-16); Calcium 8.5 mg/dL (8.4-10.2); Carbon Dioxide 24 mmol/L (22-29); Chloride 106 mmol/L (96-108); Creatinine Clr Calc Pharmacy 95.4; Estimated Glomerular Filt Rate > 60; Glucose Random 114 mg/dL (60-115); Lipase 79 U/L (8-78); Potassium 3.9 mmol/l (3.3-5.1); Sodium 139 mmol/L (135-145)
[2020-07-25 08:00] VITALS: BP 161/91; PULSE 75; RESP 17; TEMP 37; O2SAT 96
--- NOTE | 2020-07-25 10:02 | MHC.CM.PN ---
PT DISCHARGED TODAY, HOME WITH NO SERVICES. TRANSPORTATION PROVIDED BY FAMILY
--- NOTE | 2020-07-25 13:47 | P.DS_ITS ---
DS: Providers Provider Date of Service: 07/25/20 Date of admission: 07/22/20 05:34 Primary care physician: Josh Plaza MD Consults: 07/22/20 12:06 Consult to Gastroenterology Routine Consulting Provider: Grant Amaro Reason for consultation: Recurrent Pancreatitis for your kind eval and rec. DS: Diagnosis Discharge Diagnosis (1) Acute pancreatitis: Status: Acute (2) Leukocytosis: Status: Acute DS: Medications Discharge Medications Home Medications: Home Medications Medication Instructions Recorded Confirmed No Known Home Meds 07/22/20 07/22/20 DS: Summary Hospital Course Hospital Course: Admission note HPI This is a generally healthy 65-year-old male with past medical history of idiopathic pancreatitis 2 years ago who presents to the hospital with severe abdominal pain. Patient describes the pain as epigastric, nonradiating, 9/10, sudden onset, no alleviating or exacerbating factors, that occurred in the evening while at rest. Patient reports nausea associated with his and 1 episode of vomiting. Patient denies drinking alcohol, denies taking any medications for any medical problems at this time and reports a similar episode 2 years ago that was idiopathic in nature. He denies any chest pain, no headache or change in vision, no shortness of breath or cough, no diarrhea, no urinary symptoms no lower extremity edema, no weakness numbness or tingling. On arrival to the ED hemodynamically stable with no significant abnormal vitals except for a blood pressure 147/78 which has now resolved Labs are significant for WBC count of 19.5, patient afebrile, BUN of 19, creatinine of 1.04, lipase of 8832. CT abdomen shows with significant intraperitoneal fluid around the pancreatic head and body. No organized peripancreatic collections,Hepatic steatosis, non obstructing nephrolithiasis and prostatomegaly Hospital course The patient was admitted to the hospital for treatment of acute pancreatitis approved by CT scan and elevated lipase to 8000. Treated mainly with NPO, IV fluids and pain medications. He improved significantly during the hospital stay and was evaluated by printing equipment mechanic apprentice Dr. Amaro as no clear reason for the pancreatitis identified. He was able to tolerate diet well last was advanced and pain decreased significantly with no requirement of IV pain medication over the last 24 hours. Discharged home to follow-up with Dr. Amaro for further workup as outpatient. Time Spent with Patient Time attestation: Total time spent providing and/or coordinating discharge services: Discharge coordination time: Greater than 30 minutes Physical Exam Vital Signs: Vital Signs: Last Vital Signs Temp 98.6 F 07/25/20 08:00 Pulse 75 07/25/20 08:00 Resp 17 07/25/20 08:00 BP 161/91 H 07/25/20 08:00 Pulse Ox 96 07/25/20 08:00 Body Mass Index 29.1 Constitutional : Alert, oriented, not in distress Neck : Normal inspection, Supple Cardiovascular : RRR, S1 S2, no lower extremity edema Respiratory : Good bilateral air entry, no crackles, wheezes or rhonchi Gastrointestinal: soft, lax, Normal bowel sounds, Non tender Skin : Warm/Dry, No rash Neurological : Alert & oriented x3, No focal deficit DS: Data Data Completed and Pending Labs on day of discharge: Laboratory Tests 07/22/20 07/22/20 07/22/20 03:06 03:06 03:06 WBC RBC Hgb Hct MCV MCH MCHC RDW Plt Count MPV Immature Gran % (Auto) Neut % (Auto) Lymph % (Auto) [place] % (Auto) Eos % (Auto) Baso % (Auto) Lymph # (Auto) [place] # (Auto) Eos # (Auto) Baso # (Auto) Abs Immat Gran (auto) Absolute Neuts (auto) Absolute Nucleated RBC Nucleated RBC % (auto) PT 11.9 INR 1.0 APTT 30.0 Sodium 139 Potassium 4.9 Chloride 100 Carbon Dioxide 31 H Anion Gap 13 BUN 19 H Creatinine 1.04 Estim Creat Clear Calc 68.7 Estimated GFR > 60 Random Glucose 177 H Fasting Glucose Calcium 9.3 Magnesium 2.1 Total Bilirubin 0.3 Direct Bilirubin < 0.2 AST 24 ALT 32 Alkaline Phosphatase 78 Lactate Dehydrogenase 177 Troponin I High Sens 4.5 Total Protein 7.2 Albumin 4.3 Triglycerides Lipase COVID-19 ([facility]) COVID-19 Clin Com 07/22/20 07/22/20 07/22/20 03:06 03:07 03:07 WBC 19.5 H RBC 5.38 Hgb 15.5 Hct 46.7 MCV 86.8 MCH 28.8 MCHC 33.2 RDW 13.2 Plt Count 259 MPV 10.1 Immature Gran % (Auto) 0.3 Neut % (Auto) 88.4 H Lymph % (Auto) 7.8 L [place] % (Auto) 2.9 Eos % (Auto) 0.3 Baso % (Auto) 0.3 Lymph # (Auto) 1.5 [place] # (Auto) 0.6 Eos # (Auto) 0.1 Baso # (Auto) 0.1 Abs Immat Gran (auto) 0.06 H Absolute Neuts (auto) 17.2 H Absolute Nucleated RBC 0.000 Nucleated RBC % (auto) 0.0 PT INR APTT Sodium Potassium Chloride Carbon Dioxide Anion Gap BUN Creatinine Estim Creat Clear Calc Estimated GFR Random Glucose Fasting Glucose Calcium Magnesium Total Bilirubin Direct Bilirubin AST ALT Alkaline Phosphatase Lactate Dehydrogenase Troponin I High Sens Total Protein Albumin Triglycerides 135 Lipase 8832 H COVID-19 ([facility]) Negative COVID-19 Clin Com See Note 07/23/20 07/23/20 07/24/20 05:17 05:17 06:25 WBC 14.0 H 12.6 H RBC 4.62 4.62 Hgb 13.3 L 13.4 L Hct 40.0 L 40.0 L MCV 86.6 86.6 MCH 28.8 29.0 MCHC 33.3 33.5 RDW 13.2 13.1 Plt Count 214 206 MPV 10.6 10.8 Immature Gran % (Auto) 0.3 0.4 Neut % (Auto) 82.5 H 74.7 H Lymph % (Auto) 9.7 L 15.1 L [place] % (Auto) 6.0 7.8 Eos % (Auto) 1.3 1.6 Baso % (Auto) 0.2 0.4 Lymph # (Auto) 1.4 1.9 Love # (Auto) 0.8 1.0 Eos # (Auto) 0.2 0.2 Baso # (Auto) 0.0 0.1 Abs Immat Gran (auto) 0.04 H 0.05 H Absolute Neuts (auto) 11.5 H 9.4 H Absolute Nucleated RBC 0.000 0.000 Nucleated RBC % (auto) 0.0 0.0 PT INR APTT Sodium 136 Potassium 4.0 Chloride 103 Carbon Dioxide 22 Anion Gap 15 BUN 12 Creatinine 0.75 Estim Creat Clear Calc 95.4 Estimated GFR > 60 Random Glucose 100 D Fasting Glucose Calcium 8.1 L D Magnesium Total Bilirubin 0.6 Direct Bilirubin 0.3 AST 16 ALT 19 Alkaline Phosphatase 69 Lactate Dehydrogenase Troponin I High Sens Total Protein 5.6 L D Albumin 3.4 L D Triglycerides Lipase 1553 H COVID-19 ([facility]) COVID-19 [employer] 07/24/20 07/24/20 07/25/20 06:25 06:25 06:16 WBC RBC Hgb Hct MCV MCH MCHC RDW Plt Count MPV Immature Gran % (Auto) Neut % (Auto) Lymph % (Auto) [place] % (Auto) Eos % (Auto) Baso % (Auto) Lymph # (Auto) [place] # (Auto) Eos # (Auto) Baso # (Auto) Abs Immat Gran (auto) Absolute Neuts (auto) Absolute Nucleated RBC Nucleated RBC % (auto) PT INR APTT Sodium 139 139 Potassium 4.3 3.9 Chloride 104 106 Carbon Dioxide 26 24 Anion Gap 13 13 BUN 8 L 7 L Creatinine 0.78 0.75 Estim Creat Clear Calc 91.7 95.4 Estimated GFR > 60 > 60 Random Glucose TNP 114 Fasting Glucose 94 Calcium 8.4 8.5 Magnesium Total Bilirubin Direct Bilirubin AST ALT Alkaline Phosphatase Lactate Dehydrogenase Troponin I High Sens Total Protein Albumin Triglycerides Lipase 133 H 79 H COVID-19 ([facility]) COVID-19 Clin Com Discharge Plan Discharge Patient Disposition: Home, Self-Care Referrals: Josh Plaza MD [Primary Care Provider] - Discharge Medications: No Action No Known Home Meds RF: 0 Discharge Orders: Discharge Order (Routine); Ordered 07/25/20 Ordered By: Enid Keenan Diet: advance to usual diet Activity on Discharge: As tolerated Discharge Date/Time: 07/25/20 10:31 Visit Report Forms: Patient Portal Discharge page Care Plan Goals: Read below Health Concerns: Read below Plan of Treatment: You have presented to the hospital with abdominal pain. Images were significant for acute pancreatitis. You were treated mainly with IV fluid, pain medications with good response over the course of treatment. You were evaluated by printing equipment mechanic apprentice who recommended follow-up as outpatient for further evaluation of the underlying goes of your recurrent pancreatitis. Advance your diet slowly at home and drink plenty of fluids.
== END 2020-07-25 10:31 | disposition home or self-care (01) | DRG 440 ==
LOC: HO.ED 04:07 → HO.EDOVER 05:40 → HO.S3 08:03
PROVIDERS: Internal Medicine; Admitting Provider Internal Medicine; Emergency Provider Emergency Medicine; PCP Internal Medicine; Visit Provider Student in an Organized Health Care Education/Training Program
DX: K85.00 Idiopathic acute pancreatitis without necrosis or infection (principal); D72.829 Elevated white blood cell count, unspecified; Z20.822 Contact with and (suspected) exposure to COVID-19
CPT/HCPCS: 36415; 74177; 76705; 80048; 80076; 83615; 83690; 83735; 84478; 84484; 85025; 85027; 85610; 85730; 87635; 93005; 96361; 96374; 96375; 99232; 99285; J1170; J2405; Q9967